=== PATIENT | female | born 1990 | race Caucasian/White ===

== ENCOUNTER 2016-10-21 20:41 | Emergency (ER) | payer OTHER ==
[~2016-10-21] VITALS: Ht 154.9 cm; Wt 67.7 kg
[2016-10-21] MEDS ORDERED: CLEOCIN300 MG PO (22:27)
[2016-10-21] MEDS ORDERED: PERCOCET 5/31 TABLET PO (22:27)
[2016-10-21 23:34] VITALS: BP 123/77
== END 2016-10-21 23:35 | disposition home or self-care (01) ==
LOC: EME 20:41 → EXP 20:41
PROC: 0H98XZZ Drainage of Buttock Skin, External Approach (ICD-10-PCS; principal; 2016-10-21)
DX: L05.01 Pilonidal cyst with abscess (principal); F17.200 Nicotine dependence, unspecified, uncomplicated
CPT/HCPCS: 99281; 99284